=== PATIENT | male | born 1950 | race Caucasian/White ===

== ENCOUNTER 2022-09-01 01:37 | Inpatient (IN) | payer MEDICARE, OTHER ==
[2022-09-01 04:13] VITALS: BMI 26.3
[2022-09-01] MEDS ORDERED: Lorazepam 2 MG/ML VIAL IM PRN (04:21)
[2022-09-01] MEDS ORDERED: Lorazepam 1 MG TAB PO PRN (04:21)
[2022-09-01] MEDS ORDERED: Electrolyte Replacement Protocol 1 EACH FS SCH (04:30)
[2022-09-01] MEDS ORDERED: Thiamine HCl 200 MG/2 ML VIAL SLOW IVP SCH (04:30)
[2022-09-01] MEDS ORDERED: Sodium Chloride 0.9% 1,000 ML IV SCH ×4 (04:30→12:41)
[2022-09-01] MEDS: Lorazepam 1 MG TAB PO SCH ×4 (04:41→21:51)
[2022-09-01] MEDS ORDERED: Magnesium 2 GM/50 ML(in water) 2 GM in Premix Bag 1 BAG IVPB SCH (04:45)
[2022-09-01 05:08] LABS: Mean Corpuscular HGB CONC 32.4 g/dL (32.0-36.0); Mean Corpuscular Hemoglobin 33.9 pg (27.0-31.0); Mean Platelet Volume 7.9 fL (7.4-10.4); Platelet Count 147 thou/uL (130-400); RBC Distribution Width 11.3 % (11.5-14.5); Red Blood Cell (RBC) Count 4.42 mill/uL (4.70-6.10); White Blood Cell (WBC) Count 5.3 thou/uL (4.8-10.8)
[2022-09-01 05:23] LABS: Phosphorus 2.1 mg/dL (2.3-4.7)
[2022-09-01 05:29] LABS: ALT (SGPT) 23 U/L (8-55); AST (SGOT) 38 U/L (5-34); Albumin 3.2 g/dL (3.4-4.8); Alkaline Phosphatase 41 U/L (40-110); Anion Gap 13 mmol/L (10-20); BUN (Urea Nitrogen) 12 mg/dL (8.4-25.7); Bilirubin, Total 0.8 mg/dL (0.2-1.2); Calc. Creatinine Clearance 81 mL/min (70-130); Calcium 7.7 mg/dL (7.8-10.44); Carbon Dioxide 19 mmol/L (23-31); Chloride 101 mmol/L (98-107); Estimated GFR 88; Globulin 2.7 g/dL (2.4-3.5); Glucose 199 mg/dL (83-110); Potassium 3.9 mmol/L (3.5-5.1); Protein, Total 5.9 g/dL (5.8-8.1); Sodium 129 mmol/L (136-145)
[2022-09-01 06:23] LABS: Band 51 % (5-11); Lymphocytes 15 % (21-51); MDiff Complete? YES; Macrocytosis SLIGHT = 6-15 cells (100X) (0-5/hpf); Monocytes 7 % (0-10); Neutrophil 22 % (42-75); Nucleated RBC 1 % (0); Platelet Morphology Comment Appears Adequate; Polychromasia SLIGHT = 2-3 cells (100X) (0-2/hpf); Reactive Lymphocytes 5 % (0-10); Reflex for Review?? YES
[2022-09-01 07:35] LABS: Hemoglobin A1c 4.7 % (4.0-6.0)
[2022-09-01] MEDS ORDERED: Piperacillin/Tazobactam 3.375 GM in Sodium Chloride 0.9% 100 ML IVPB SCH (08:00)
[2022-09-01] MEDS: Folic Acid 1 MG TAB PO SCH (09:58)
[2022-09-01] MEDS: Multivit, Therapeutic 1 TAB PO SCH (09:58)
[2022-09-01] MEDS: Pantoprazole 40 MG VIAL IVP SCH ×2 (09:59→20:32)
[2022-09-01] MEDS: Piperacillin/Tazobactam 3.375 GM in Sodium Chloride 0.9% 100 ML IVPB SCH ×2 (12:18→20:32)
[2022-09-01 12:31] LABS: Anion Gap 15 mmol/L (10-20); BUN (Urea Nitrogen) 13 mg/dL (8.4-25.7); Calc. Creatinine Clearance 86 mL/min (70-130); Calcium 8.1 mg/dL (7.8-10.44); Carbon Dioxide 21 mmol/L (23-31); Chloride 97 mmol/L (98-107); Estimated GFR 92; Glucose 148 mg/dL (83-110); Sodium 129 mmol/L (136-145)
[2022-09-01] MEDS ORDERED: Iopamidol-370 76% 500 ML 1 ML ONE (13:49)
[2022-09-01 17:39] LABS: Amphetamine Not Detected (NotDetected); Barbiturates Screen Not Detected (NotDetected); Benzodiazepine Screen Detected (NotDetected); Cocaine Metabolite Screen Not Detected (NotDetected); Methadone Not Detected (NotDetected); Methamphetamine Not Detected (NotDetected); Opiate Screen Not Detected (NotDetected); Oxycodone Screen Not Detected (NotDetected); Phencyclidine (PCP) Not Detected (NotDetected); THC/Cannabinoid Screen Not Detected (NotDetected); Tricyclic Screen Not Detected (NotDetected)
[2022-09-01] MEDS: Sodium Chloride 0.9% 1,000 ML IV SCH ×2 (18:47→20:32)
[2022-09-01] MEDS: Thiamine HCl 200 MG/2 ML VIAL SLOW IVP SCH (20:32)
[2022-09-01] MEDS: Acetaminophen 325 MG TAB PO PRN (23:56)
[2022-09-02] MEDS: Sodium Chloride 0.9% 1,000 ML IV SCH (03:48)
[2022-09-02] MEDS: Piperacillin/Tazobactam 3.375 GM in Sodium Chloride 0.9% 100 ML IVPB SCH ×3 (04:03→20:44)
[2022-09-02] MEDS: Lorazepam 1 MG TAB PO SCH ×4 (04:06→20:45)
[2022-09-02] MEDS ORDERED: Lorazepam 1 MG TAB PO PRN (04:21)
[2022-09-02 04:54] LABS: Anion Gap 11 mmol/L (10-20); BUN (Urea Nitrogen) 12 mg/dL (8.4-25.7); Calc. Creatinine Clearance 98 mL/min (70-130); Calcium 7.7 mg/dL (7.8-10.44); Carbon Dioxide 20 mmol/L (23-31); Chloride 100 mmol/L (98-107); Estimated GFR 96; Glucose 123 mg/dL (83-110); Magnesium 2.5 mg/dL (1.6-2.6); Potassium 3.4 mmol/L (3.5-5.1); Sodium 128 mmol/L (136-145)
[2022-09-02 05:12] LABS: Band 54 % (5-11); Hemoglobin 13.6 g/dL (14.0-18.0); Lymphocytes 3 % (21-51); MDiff Complete? YES; Macrocytosis SLIGHT = 6-15 cells (100X) (0-5/hpf); Mean Corpuscular Hemoglobin 35.9 pg (27.0-31.0); Mean Platelet Volume 7.7 fL (7.4-10.4); Monocytes 3 % (0-10); Neutrophil 40 % (42-75); Platelet Count 153 thou/uL (130-400); Platelet Morphology Comment Appears Adequate; RBC Distribution Width 11.3 % (11.5-14.5); Red Blood Cell (RBC) Count 3.78 mill/uL (4.70-6.10); White Blood Cell (WBC) Count 14.1 thou/uL (4.8-10.8)
[2022-09-02] MEDS ORDERED: Potassium Chloride 20 MEQ TAB PO SCH (08:00)
[2022-09-02] MEDS: Multivit, Therapeutic 1 TAB PO SCH (09:51)
[2022-09-02] MEDS: Pantoprazole 40 MG VIAL IVP SCH ×2 (09:51→20:45)
[2022-09-02] MEDS: Folic Acid 1 MG TAB PO SCH (09:51)
[2022-09-02] MEDS: Thiamine HCl 200 MG/2 ML VIAL SLOW IVP SCH (20:45)
[2022-09-02] MEDS ORDERED: REMDESIVIR 200 MG in Sodium Chloride 0.9% 250 ML 210 ML IV SCH (21:00)
[2022-09-02] MEDS: Ipratropium/Albuterol Sulfate 4 GM AER IH PRN (21:20)
[2022-09-03] MEDS: Sodium Chloride 0.9% 1,000 ML IV SCH ×2 (03:02→03:03)
[2022-09-03] MEDS: Lorazepam 0.5 MG TAB PO SCH ×4 (03:49→23:33)
[2022-09-03] MEDS: Piperacillin/Tazobactam 3.375 GM in Sodium Chloride 0.9% 100 ML IVPB SCH ×3 (03:49→21:19)
[2022-09-03] MEDS ORDERED: Lorazepam 1 MG TAB PO PRN (04:21)
[2022-09-03 05:15] LABS: Anion Gap 12 mmol/L (10-20); BUN (Urea Nitrogen) 11 mg/dL (8.4-25.7); Calc. Creatinine Clearance 99 mL/min (70-130); Calcium 8.6 mg/dL (7.8-10.44); Carbon Dioxide 22 mmol/L (23-31); Chloride 100 mmol/L (98-107); Estimated GFR 96; Glucose 114 mg/dL (83-110); Magnesium 2.7 mg/dL (1.6-2.6); Potassium 3.3 mmol/L (3.5-5.1); Sodium 131 mmol/L (136-145)
[2022-09-03] MEDS ORDERED: Potassium Chloride 20 MEQ TAB PO SCH (05:45)
[2022-09-03 05:56] LABS: Band 22 % (5-11); Hemoglobin 12.4 g/dL (14.0-18.0); Lymphocytes 1 % (21-51); MDiff Complete? YES; Macrocytosis SLIGHT = 6-15 cells (100X) (0-5/hpf); Mean Corpuscular HGB CONC 34.2 g/dL (32.0-36.0); Mean Corpuscular Hemoglobin 35.6 pg (27.0-31.0); Mean Platelet Volume 7.9 fL (7.4-10.4); Metamyelocyte 2 % (0-0); Monocytes 5 % (0-10); Neutrophil 70 % (42-75); Ovalocytes SLIGHT = 2-5 cells (100X) (0-1/hpf); Platelet Count 157 thou/uL (130-400); Platelet Morphology Comment Appears Adequate; RBC Distribution Width 11.2 % (11.5-14.5); Red Blood Cell (RBC) Count 3.48 mill/uL (4.70-6.10); White Blood Cell (WBC) Count 12.5 thou/uL (4.8-10.8)
[2022-09-03] MEDS: Multivit, Therapeutic 1 TAB PO SCH (10:22)
[2022-09-03] MEDS: Zinc Sulfate 220 MG CAP PO SCH (10:22)
[2022-09-03] MEDS: Ascorbic Acid 500 mg Chewable Tablet PO SCH (10:22)
[2022-09-03] MEDS: Nicotine 21 MG PATCH TD SCH (10:23)
[2022-09-03] MEDS: Folic Acid 1 MG TAB PO SCH (10:23)
[2022-09-03] MEDS: Pantoprazole 40 MG VIAL IVP SCH ×2 (10:23→21:19)
[2022-09-03] MEDS: Ipratropium/Albuterol Sulfate 4 GM AER IH PRN (10:23)
[2022-09-03] MEDS ORDERED: ALPRAZolam 0.25 MG TAB PO SCH (10:30)
[2022-09-03] MEDS: Thiamine HCl 200 MG/2 ML VIAL SLOW IVP SCH (21:20)
[2022-09-03 21:25] LABS: Campy jejuni + coli by PCR Negative (Negative); STEC Shiga Toxin 1+2 POSITIVE (Negative); Salmonella spp. by PCR Negative (Negative); Shigella spp + EIEC by PCR Negative (Negative)
[2022-09-03] MEDS: REMDESIVIR 100 MG in Sodium Chloride 0.9% 250 ML 230 ML IV SCH (22:07)
[2022-09-04] MEDS: Piperacillin/Tazobactam 3.375 GM in Sodium Chloride 0.9% 100 ML IVPB SCH ×2 (04:09→11:20)
[2022-09-04] MEDS: Lorazepam 0.5 MG TAB PO PRN ×2 (04:16→19:46)
[2022-09-04] MEDS ORDERED: Thiamine 100 MG TAB PO SCH (04:30)
[2022-09-04 05:23] LABS: Band 28 % (5-11); Hemoglobin 12.9 g/dL (14.0-18.0); Hypochromia SLIGHT = 6-15 cells (100X) (0-5/hpf); Lymphocytes 4 % (21-51); MDiff Complete? YES; Mean Corpuscular HGB CONC 33.4 g/dL (32.0-36.0); Mean Corpuscular Hemoglobin 34.8 pg (27.0-31.0); Mean Platelet Volume 7.2 fL (7.4-10.4); Monocytes 3 % (0-10); Neutrophil 65 % (42-75); Platelet Count 202 thou/uL (130-400); Platelet Morphology Comment Appears Adequate; RBC Distribution Width 11.4 % (11.5-14.5); Red Blood Cell (RBC) Count 3.71 mill/uL (4.70-6.10); White Blood Cell (WBC) Count 13.3 thou/uL (4.8-10.8)
[2022-09-04 05:25] LABS: Anion Gap 10 mmol/L (10-20); BUN (Urea Nitrogen) 15 mg/dL (8.4-25.7); Calc. Creatinine Clearance 111 mL/min (70-130); Carbon Dioxide 25 mmol/L (23-31); Chloride 101 mmol/L (98-107); Potassium 3.1 mmol/L (3.5-5.1); Sodium 133 mmol/L (136-145)
[2022-09-04 05:26] LABS: Calcium 8.5 mg/dL (7.8-10.44); Estimated GFR 99; Glucose 111 mg/dL (83-110); Magnesium 2.5 mg/dL (1.6-2.6)
[2022-09-04] MEDS ORDERED: Potassium Chloride 20 MEQ TAB PO SCH (06:00)
[2022-09-04] MEDS ORDERED: FLU VACC QS2022-23(65YR UP)/PF 240 MCG/0.7 ML SYRINGE IM ONE (09:00)
[2022-09-04] MEDS: Pantoprazole 40 MG VIAL IVP SCH ×2 (09:49→19:46)
[2022-09-04] MEDS: Nicotine 21 MG PATCH TD SCH (09:49)
[2022-09-04] MEDS: Zinc Sulfate 220 MG CAP PO SCH (09:49)
[2022-09-04] MEDS: Folic Acid 1 MG TAB PO SCH (09:49)
[2022-09-04] MEDS: Multivit, Therapeutic 1 TAB PO SCH (09:49)
[2022-09-04] MEDS: Ascorbic Acid 500 mg Chewable Tablet PO SCH (09:49)
[2022-09-04] MEDS: Acetaminophen 325 MG TAB PO PRN (19:52)
[2022-09-04] MEDS: Thiamine 100 MG TAB PO SCH (19:52)
[2022-09-04] MEDS: Ondansetron PF 4 MG/2 ML Vial IVP PRN (19:53)
[2022-09-04] MEDS: REMDESIVIR 100 MG in Sodium Chloride 0.9% 250 ML 230 ML IV SCH (22:00)
[2022-09-04] MEDS: Melatonin 3 MG TAB PO PRN (22:20)
[2022-09-05] MEDS: Acetaminophen 325 MG TAB PO PRN ×3 (01:05→22:18)
[2022-09-05] MEDS: Lorazepam 0.5 MG TAB PO PRN (04:28)
[2022-09-05 06:53] LABS: Anion Gap 14 mmol/L (10-20); BUN (Urea Nitrogen) 16 mg/dL (8.4-25.7); Calc. Creatinine Clearance 120 mL/min (70-130); Calcium 7.9 mg/dL (7.8-10.44); Carbon Dioxide 21 mmol/L (23-31); Chloride 102 mmol/L (98-107); Estimated GFR 102; Glucose 122 mg/dL (83-110); Potassium 3.2 mmol/L (3.5-5.1); Sodium 134 mmol/L (136-145)
[2022-09-05] MEDS ORDERED: Potassium Chloride 20 MEQ TAB PO SCH (08:00)
[2022-09-05] MEDS: Nicotine 21 MG PATCH TD SCH (09:05)
[2022-09-05] MEDS: Ascorbic Acid 500 mg Chewable Tablet PO SCH (09:05)
[2022-09-05] MEDS: Multivit, Therapeutic 1 TAB PO SCH (09:05)
[2022-09-05] MEDS: Zinc Sulfate 220 MG CAP PO SCH (09:05)
[2022-09-05] MEDS: Folic Acid 1 MG TAB PO SCH (09:05)
[2022-09-05] MEDS: Dicyclomine 20 MG TAB PO PRN ×2 (10:13→22:18)
[2022-09-05] MEDS: Ondansetron PF 4 MG/2 ML Vial IVP PRN (19:47)
[2022-09-05] MEDS: Thiamine 100 MG TAB PO SCH (19:47)
[2022-09-05] MEDS: Melatonin 3 MG TAB PO PRN (19:47)
[2022-09-05] MEDS: REMDESIVIR 100 MG in Sodium Chloride 0.9% 250 ML 230 ML IV SCH (19:47)
[2022-09-05] MEDS ORDERED: Melatonin 3 MG TAB PO SCH (23:59)
[2022-09-06] MEDS ORDERED: traZODone HCl 50 MG TAB PO SCH ×2 (01:15→23:45)
[2022-09-06] MEDS ORDERED: Ketorolac Tromethamine 30 MG/ML VIAL IVP SCH (01:15)
[2022-09-06] MEDS: Multivit, Therapeutic 1 TAB PO SCH (08:19)
[2022-09-06] MEDS: Ascorbic Acid 500 mg Chewable Tablet PO SCH (08:19)
[2022-09-06] MEDS: Nicotine 21 MG PATCH TD SCH (08:19)
[2022-09-06] MEDS: Folic Acid 1 MG TAB PO SCH (08:19)
[2022-09-06] MEDS: Zinc Sulfate 220 MG CAP PO SCH (08:19)
[2022-09-06] MEDS: Dicyclomine 20 MG TAB PO PRN ×2 (08:23→16:26)
[2022-09-06] MEDS: Ondansetron PF 4 MG/2 ML Vial IVP PRN ×3 (08:23→20:58)
[2022-09-06] MEDS: Thiamine 100 MG TAB PO SCH (20:08)
[2022-09-06] MEDS: Acetaminophen 325 MG TAB PO PRN (20:08)
[2022-09-06] MEDS: REMDESIVIR 100 MG in Sodium Chloride 0.9% 250 ML 230 ML IV SCH (20:55)
[2022-09-06] MEDS: Melatonin 3 MG TAB PO PRN (23:01)
[2022-09-07] MEDS: Acetaminophen 325 MG TAB PO PRN (02:04)
[2022-09-07] MEDS: Nicotine 21 MG PATCH TD SCH (08:46)
[2022-09-07] MEDS: Multivit, Therapeutic 1 TAB PO SCH (08:46)
[2022-09-07] MEDS: Zinc Sulfate 220 MG CAP PO SCH (08:46)
[2022-09-07] MEDS: Folic Acid 1 MG TAB PO SCH (08:46)
[2022-09-07] MEDS: Ascorbic Acid 500 mg Chewable Tablet PO SCH (08:46)
[2022-09-07 08:52] VITALS: BP 124/72; TEMP 98.4
== END 2022-09-07 11:50 | disposition home or self-care (01) | DRG 371 ==
LOC: 2NO 01:37 → T4-A 09-04 14:15
PROVIDERS: ADMIT Internal Medicine; ATTEND Internal Medicine
PROC: HZ2ZZZZ Detoxification Services for Substance Abuse Treatment (ICD-10-PCS; 2022-09-01)
PROC: XW033E5 Introduction of Remdesivir Anti-infective into Peripheral Vein, Percutaneous Approach, New Technology Group 5 (ICD-10-PCS; principal; 2022-09-02)
PROC: 8E0ZXY6 Isolation (ICD-10-PCS; 2022-09-02)
DX: A04.4 Other intestinal Escherichia coli infections (principal); U07.1 COVID-19; E87.1 Hypo-osmolality and hyponatremia; F10.139 Alcohol abuse with withdrawal, unspecified; F17.290 Nicotine dependence, other tobacco product, uncomplicated; E87.6 Hypokalemia; E83.42 Hypomagnesemia; R79.89 Other specified abnormal findings of blood chemistry; E27.8 Other specified disorders of adrenal gland; E86.0 Dehydration; E86.1 Hypovolemia; Z28.21 Immunization not carried out because of patient refusal; Z82.49 Family history of ischemic heart disease and other diseases of the circulatory system; Z71.6 Tobacco abuse counseling; Z71.41 Alcohol abuse counseling and surveillance of alcoholic
CPT/HCPCS: 36415; 71045; 71275; 80048; 80053; 80306; 83036; 83735; 83880; 83930; 83935; 84100; 84300; 85025; 85060; 85379; 86140; 86850; 86900; 86901; 87040; 87324; 87449; 87505; 93970; C9113; J0248; J1885; J2405; J2543; J3411; J3475; J3490; J3535; J7050; Q9967; U0003; U0005